=== PATIENT | male | born 1980 | race Two or more races ===

== ENCOUNTER 2025-04-10 10:13 | Inpatient (IN) | payer OTHER ==
[~2025-04-10] VITALS: Ht 172.7 cm; Wt 85.0 kg
[2025-04-10] MEDS ORDERED: ACETAMINOPHEN 325 MG TABLET PO PRN (11:15)
[2025-04-10] MEDS ORDERED: MAGNESIUM HYDROXIDE SUSPENSION 30 ML UDCUP PO PRN (11:15)
[2025-04-10] MEDS ORDERED: ONDANSETRON HCL 4 MG/2 ML VIAL IVP PRN (11:15)
[2025-04-10] MEDS: SODIUM CHLORIDE 0.9% 1,000 ML IV ONE (11:56)
[2025-04-10 12:03] LABS: BASOPHILS % (AUTO) 0.6 % (0.0-2.0); EOSINOPHILS % (AUTO) 0.6 % (1.0-6.0); HEMATOCRIT 46.7 % (41-53); HEMOGLOBIN 15.9 g/dL (13.5-17.5); LYMPHOCYTES # (AUTO) 1.5 K/uL (1.0-4.8); LYMPHOCYTES % (AUTO) 21.9 % (22.0-44.0); MEAN CORPUSCULAR HEMOGLOBIN 29.9 pg (26.0-34.0); MEAN CORPUSCULAR VOLUME 88 fL (80-100); MONOCYTES # (AUTO) 0.4 K/uL (0.1-1.0); MONOCYTES % (AUTO) 5.6 % (2.0-9.0); NEUTROPHILS # (AUTO) 4.8 K/uL (1.8-7.7); NEUTROPHILS % (AUTO) 71.3 % (40.0-70.0); PLATELET COUNT (AUTO) 190 K/uL (150-450); RED CELL DISTRIBUTION WIDTH 13.5 % (11.5-14.5); WHITE BLOOD COUNT (AUTO) 6.7 K/uL (4.5-11.0)
[2025-04-10 12:07] LABS: ANION GAP 7 mmol/L (8-16); CARBON DIOXIDE 28 mmol/L (22-29); CHLORIDE 102 mmol/L (98-107); POTASSIUM 4.2 mmol/L (3.5-5.1); SODIUM SERUM 137 mmol/L (136-145)
[2025-04-10 12:08] LABS: GLUCOSE,RANDOM 102 mg/dL (70-110); UREA NITROGEN, BLOOD 17 mg/dL (7-18)
[2025-04-10 12:09] LABS: CALCIUM, TOTAL 9.1 mg/dL (8.8-10.5); CREATININE 0.89 mg/dL (0.60-1.30); GLOMERULAR FILTR. RATE CALC > 60 mL/min (>60)
[2025-04-10 14:26] VITALS: BP 126/81; PULSE 69; RESP 18; TEMP 97.7; O2SAT 100
[2025-04-10 16:43] LABS: APPEARANCE,URINE CLEAR (CLEAR); BILIRUBIN,URINE NEGATIVE (NEGATIVE); COLOR,URINE YELLOW (YELLOW); GLUCOSE, URINE (UA) NEGATIVE (NEGATIVE); KETONES,URINE NEGATIVE (NEGATIVE); LEUKOCYTE ESTERASE ,URINE NEGATIVE (NEGATIVE); NITRATE,URINE NEGATIVE (NEGATIVE); OCCULT BLOOD,URINE NEGATIVE (NEGATIVE); PH,URINE 5.5 (5.0-8.0); PROTEIN,URINE TRACE mg/dL (NEGATIVE); SPECIFIC GRAVITIY, URINE 1.014 (1.003-1.030); UROBILINOGEN,URINE <=1.0 mg/dL (<=1.0)
[2025-04-10 16:45] LABS: PH,URINE DRUG SCREEN 5.5 (5.0-8.0)
[2025-04-10 16:50] LABS: ALCOHOL, URINE DRUG SCREEN NEGATIVE (NEGATIVE); AMPHET/METH SCREEN,URINE POSITIVE (NEGATIVE); BARBITURATE SCREEN, URINE NEGATIVE (NEGATIVE); BENZODIAZEPINES SCREEN,URINE NEGATIVE (NEGATIVE); CANNABINOID SCREEN,URINE NEGATIVE (NEGATIVE); COCAINE SCREEN,URINE NEGATIVE (NEGATIVE); METHADONE SCREEN, URINE POSITIVE (NEGATIVE); OPIATE SCREEN,URINE NEGATIVE (NEGATIVE); PHENCYCLIDINE SCREEN,URINE NEGATIVE (NEGATIVE)
[2025-04-10 19:19] VITALS: BP 101/58; PULSE 64; RESP 18; TEMP 98.2; O2SAT 98
[2025-04-10] MEDS: FAMOTIDINE 20 MG TABLET PO SCH (20:04)
[2025-04-11 07:46] VITALS: BP 100/69; PULSE 53; RESP 18; TEMP 98.8; O2SAT 100
[2025-04-11] MEDS: LORazepam 2 MG/ML VIAL IVP PRN (12:21)
[2025-04-11 15:26] VITALS: BP 105/65; PULSE 72; RESP 18; TEMP 97.9; O2SAT 100
[2025-04-11 20:02] VITALS: BP 109/63; PULSE 69; RESP 18; TEMP 98.2; O2SAT 100
[2025-04-12 07:50] VITALS: BP 110/78; PULSE 78; RESP 20; TEMP 98.1; O2SAT 100
[2025-04-12] MEDS ORDERED: FAMO20 PO (10:20)
[2025-04-12] MEDS ORDERED: ACET-2247 PO (10:21)
[2025-04-12] MEDS ORDERED: MAGN-169 PO (10:22)
== END 2025-04-12 17:40 | DRG 897 ==
LOC: EMS 10:17 → EDH 11:16 → 6S 14:14
PROVIDERS: ADMIT Internal Medicine; ATTEND Internal Medicine
DX: F11.23 Opioid dependence with withdrawal (principal); F15.10 Other stimulant abuse, uncomplicated; Z87.891 Personal history of nicotine dependence; Z71.51 Drug abuse counseling and surveillance of drug abuser; Z79.899 Other long term (current) drug therapy
CPT/HCPCS: 80048; 80307; 81003; 85025; 87081; 96360; 99285; J2060; 36415-L1; 36415-TC